=== PATIENT | female | born 1995 | race Two or more races ===

== ENCOUNTER 2018-06-18 20:22 | Emergency (ER) | payer MEDICAID ==
[~2018-06-18] VITALS: Ht 165.1 cm; Wt 91.2 kg
[2018-06-18 20:47] VITALS: BP 120/85
[2018-06-18] MEDS ORDERED: TETANUS-DIPTH-ACEL PERTUSSIS 0.5ML SYRG IM ONE (22:30)
[2018-06-18] MEDS ORDERED: cefTRIAXone SOD 1,000 MG VL IM ONE (22:30)
== END 2018-06-19 00:43 | disposition home or self-care (01) ==
LOC: ER 20:22
DX: S61.201A Unspecified open wound of left index finger without damage to nail, initial encounter (principal); W45.8XXA Other foreign body or object entering through skin, initial encounter; Y93.89 Activity, other specified; Y99.8 Other external cause status; Y92.89 Other specified places as the place of occurrence of the external cause
CPT/HCPCS: 73120; 90471; 90715; 96372; 99284; J0696

== ENCOUNTER 2018-09-29 15:53 | Emergency (ER) | payer MEDICAID ==
[~2018-09-29] VITALS: Ht 165.1 cm; Wt 91.2 kg
[2018-09-29 16:15] VITALS: BP 135/87
== END 2018-09-29 19:46 | disposition home or self-care (01) ==
LOC: ER 16:02
DX: S93.401A Sprain of unspecified ligament of right ankle, initial encounter (principal); W10.9XXA Fall (on) (from) unspecified stairs and steps, initial encounter; Y93.89 Activity, other specified; Y99.8 Other external cause status; Y92.89 Other specified places as the place of occurrence of the external cause
CPT/HCPCS: 73610; 73630